=== PATIENT | male | born 1955 | race Caucasian/White ===

== ENCOUNTER 2022-05-15 07:17 | Day surgery (SDC) | payer OTHER, SELFPAY ==
--- NOTE | 2022-05-14 13:11 | P.CONAN_ITS ---
Documented by User: Uyen Stanley NP 05/14/22 13:12 HPI - Anesthesia Eval Consult details Narrative: 67yo M for Upper Endoscopy and Colonoscopy COUNTS INCLUDE 234 BEDS AT THE [facility] Past Medical History Medical History (Updated 05/14/22 @ 12:32 by Sarah Sandhu, BEN) Aphthous stomatitis Arthritis BPH (benign prostatic hyperplasia) GERD (gastroesophageal reflux disease) Hearing loss HTN (hypertension) Surgical History Surgical History (Updated 05/14/22 @ 12:32 by Sarah Sandhu RN) H/O colonoscopy H/O esophagogastroduodenoscopy H/O vasectomy History of hernia surgery Social History Social History Patient Tobacco Use Status: Former Tobacco user Are you DNR?: No Advance Directives: No Advance Directives Information Provided: Yes Nutrition Risks: No Nutritional Risk Meds Allergies Allergy/AdvReac Type Severity Reaction Status Date / Time No Known Allergies Allergy Verified 05/14/22 12:29 Home Medications Medication Instructions Recorded Confirmed Last Taken Type ascorbic acid (vitamin C) 500 mg 500 mg PO DAILY 05/14/22 05/14/22 05/14/22 History chewable tablet clotrimazole 1 % topical cream 1 appl topical BID 05/14/22 05/14/22 Unknown History dexamethasone 0.5 mg/5 mL oral 10 mg PO QID 05/14/22 05/14/22 05/14/22 History solution diclofenac sodium 75 mg 75 mg PO BID 05/14/22 05/14/22 05/14/22 History tablet,delayed release duloxetine 30 mg capsule,delayed 30 mg PO DAILY 05/14/22 05/14/22 05/14/22 History release sprinkle fluticasone propionate 50 1 spray intranasal DAILY 05/14/22 05/14/22 05/14/22 History mcg/actuation nasal spray,suspension tamsulosin 0.4 mg capsule 0.4 mg PO DAILY 05/14/22 05/14/22 05/14/22 History Exam Exam Date and Time: May 14, 20221310 Assessment and Plan Assessment Anesthesia Assessment: Chart Reviewed Documented by User: Denise Vincent MD 05/15/22 08:41 COUNTS INCLUDE 234 BEDS AT THE [facility] Past Medical History Medical History (Updated 05/14/22 @ 12:32 by Sarah Sandhu RN) Aphthous stomatitis Arthritis BPH (benign prostatic hyperplasia) GERD (gastroesophageal reflux disease) Hearing loss HTN (hypertension) Family History Family history of problems with anesthesia: No Surgical History Surgical History (Updated 05/14/22 @ 12:32 by Sarah Sandhu RN) H/O colonoscopy H/O esophagogastroduodenoscopy H/O vasectomy History of hernia surgery History of Problems with Anesthesia: No Social History Social History Patient Tobacco Use Status: Former Tobacco user Are you DNR?: No Advance Directives: No Advance Directives Information Provided: Yes Nutrition Risks: No Nutritional Risk Meds Allergies Allergy/AdvReac Type Severity Reaction Status Date / Time No Known Allergies Allergy Verified 05/14/22 12:29 Home Medications Medication Instructions Recorded Confirmed Last Taken Type ascorbic acid (vitamin C) 500 mg 500 mg PO DAILY 05/14/22 05/14/22 05/14/22 History chewable tablet clotrimazole 1 % topical cream 1 appl topical BID 05/14/22 05/14/22 Unknown History dexamethasone 0.5 mg/5 mL oral 10 mg PO QID 05/14/22 05/14/22 05/14/22 History solution diclofenac sodium 75 mg 75 mg PO BID 05/14/22 05/14/22 05/14/22 History tablet,delayed release duloxetine 30 mg capsule,delayed 30 mg PO DAILY 05/14/22 05/14/22 05/14/22 History release sprinkle fluticasone propionate 50 1 spray intranasal DAILY 05/14/22 05/14/22 05/14/22 History mcg/actuation nasal spray,suspension tamsulosin 0.4 mg capsule 0.4 mg PO DAILY 05/14/22 05/14/22 05/14/22 History Exam Airway Mallampati Class: II TM Dist: >3cm Neck ROM: Full Heart: rrr Lungs: cta Assessment and Plan Assessment Anesthesia Assessment: Anesthesia Plan Discussed Final Anesthetic Review Family History of Problems with Anesthesia: No History of Problems with Anesthesia: No NPO: Yes ASA Class: II Final Preanesthetic Review: No Changes in Pt Med Stat, Meds/Allgs Chart Reviewed, Consent Obtained/Reviewed and Anes Risks/Benef Reviewed Patient Risk: Low Procedure Risk: Low Anesthetic Plan Anesthetic Plan: MAC: Disposition: Standard PACU
[2022-05-15 06:21] VITALS: BMI 22.6
[2022-05-15 07:33] VITALS: BP 148/92; PULSE 71; RESP 18; TEMP 36.8; O2SAT 97
[2022-05-15] MEDS: Lactated Ringers 1,000 ML 100 ML IVCONT (07:59)
--- NOTE | 2022-05-15 08:41 | MHC.SHP ---
Pre-Procedural Eval Section A Date of Service: 05/15/22 Section B Chief Complaint: screening,hx of polyps,gastric metaplasia Details of Present Illness: see H*P no changes Relevant Family History (Specify if Yes): No Relevant Social History: None Present Medications: see Short Stay Collaborative assessment Medical History: No relevant PMH History of Previous Operations: No relevant previous surgery Allergies: Allergies Allergy/AdvReac Type Severity Reaction Status Date / Time No Known Allergies Allergy Verified 05/14/22 12:29 Review of Systems Sugical H&P ROS: Negative: Constitution, Cardiovascular, Respiratory, Neurological, Psychiatric, Hem-Onc, Allergic/Immunologic, Gastrointestinal, Genitourinary, Musculoskeletal, Integumentary, Endocrine and Eyes/Ears/Nose/Throat Exam Surgical H&P Exam: Normal: HEENT, Normal: Heart, Normal: Lungs, Normal: Extremities, Normal: Abdomen, Normal: Skin and Normal: Neurological Plan Diagnosis/Plan: Unchanged I have reviewed the history and physical and performed a pertinent physical examination on my patient. No changes have occurred unless specified. Time Spent With Patient Time: Total time managing care of this patient today ____ minutes.
[2022-05-15 09:32] VITALS: BP 106/71; PULSE 59; RESP 14; TEMP 36.1; O2SAT 98
--- NOTE | 2022-05-15 09:32 | PM.OP ---
Brief Operative Note Date of Service: 05/15/22 Pre-op diagnosis: gastric intestinal metaplasia screening Post-op diagnosis: same Surgeon: Jaime Diaz Anesthesia: MAC Was an Biofuels Production Associate used for this Procedure?: No Estimated blood loss (mL): 2 Pathology: other Condition: stable Disposition: PACU
[2022-05-15 09:47] VITALS: BP 120/77; PULSE 57; RESP 16; TEMP 36.1; O2SAT 99
--- NOTE | 2022-05-15 10:14 | OP_ITS ---
SURGEON: Jaime Diaz MD INDICATIONS: 1. Gastric intestinal metaplasia. 2. Colon cancer screening. PREOPERATIVE DIAGNOSIS: POSTOPERATIVE DIAGNOSIS: PROCEDURE PERFORMED: Upper endoscopy with biopsy, colonoscopy to the terminal ileum with biopsy and snare polypectomy. ESTIMATED BLOOD LOSS: COMPLICATIONS: ANESTHESIA: Monitored anesthesia care. ASSISTANTS: SPECIMENS: PROCEDURE DESCRIPTION: History and physical were performed. The risks and benefits of the procedure were explained to the patient and informed consent was obtained. The procedure was performed on 05/15/2022. The patient was placed in the left lateral decubitus position. The Olympus video gastroscope was introduced into the esophagus, stomach, and duodenum. Examination was performed. The scope was removed. He was repositioned for colonoscopy. A digital rectal exam was performed and was found to be normal. The Olympus pediatric video colonoscope was introduced into the rectum and advanced to the cecum without difficulty. The cecum was identified by transillumination, palpation, and identification of ileocecal valve. Examination was performed. The scope was removed. He tolerated both procedures well and was returned to recovery area in stable condition. FINDINGS: Upper endoscopy: 1. Esophagus: The esophagus showed an irregular EG junction. There was no esophagitis. Biopsies were obtained from the EG junction. 2. Stomach: The stomach showed no evidence of masses or ulcers. There were several benign-appearing small polyps less than 5 mm in the body and fundus consistent with fundic gland polyps. Gastric mapping was performed because of the patient's history of gastric intestinal metaplasia. 3. Duodenum: The bulb and 2nd portion were normal. Colonoscopy: The terminal ileum was normal. The visualized colonic mucosa was normal. The quality of prep was good. There was moderate sigmoid diverticulosis and some scattered diverticula in the right colon. Two polyps were identified and removed. Both measured less than 10 mm. The polyp at 40 cm was removed with a biopsy forceps. The polyp at the rectum was removed with a snare. Retroflexed examination showed small internal hemorrhoids. IMPRESSION: 1. Gastric intestinal metaplasia. 2. Colon polyps. RECOMMENDATION: Follow up the biopsy results. MD GRIFFIN Nolen/SULY / [id number] MTDAntwon
== END 2022-05-15 10:15 | disposition home or self-care (01) ==
PROVIDERS: PCP Physician Assistant; Visit Provider Internal Medicine Gastroenterology
PROC: (CPT 45385; principal; 2022-05-15 08:50)
DX: Z12.11 Encounter for screening for malignant neoplasm of colon (principal); Z86.010 Personal history of colon polyps; D12.5 Benign neoplasm of sigmoid colon; K62.1 Rectal polyp; K57.30 Diverticulosis of large intestine without perforation or abscess without bleeding; K64.8 Other hemorrhoids; K31.A0 Gastric intestinal metaplasia, unspecified; K31.7 Polyp of stomach and duodenum; K21.9 Gastro-esophageal reflux disease without esophagitis; K12.0 Recurrent oral aphthae; I10 Essential (primary) hypertension; N40.0 Benign prostatic hyperplasia without lower urinary tract symptoms; H91.90 Unspecified hearing loss, unspecified ear; Z79.899 Other long term (current) drug therapy; Z98.52 Vasectomy status
CPT/HCPCS: 45385; 45380; 43239; 88305; 88342; J3010

== ENCOUNTER 2024-12-25 07:09 | Day surgery (SDC) | payer OTHER, SELFPAY ==
--- OUTSIDE RECORDS SUMMARY | 2024-05-20 05:40 | XMS_ITS ---
Author Organization [facility] Address [address] [place] [phone] Care Team Providers Care Communication Coordinator Name Role Phone Fabrice Calhoun Primary Care Provider Un available Jaime Diaz Jr Unavailable REASON FOR VISIT esophagitis Encounters Encounter Location Date Provider Diagnosis [facility] [address] [place] [phone] 05/20/2024 Jaime Diaz Jr Plan Of Treatment Next Appt Details Provider Name:Jaime tejada Jr, 12/25/2024 11:00:00 AM, [address] [place] [address], [phone], Progress Notes * LIDIA DAVILADOB:1955 ( 69 yo M)Acc No.[id number]:05/20/2024 Progress Notes Patient: LIDIA CHOWDARY Provider: Ricardo Diaz MD :1955 A ge:69 Y S ex:Male Date:05/20/2024 Address:[address] [place], [place] [id number] Pcp:Gale Conroy Subjective: * Chief Complaints: * 1 . Esophagitis. * Medical History: Objective: * Vitals: Assessment: Plan: * Treatment: * * The named appointment provid er may or may not be the originator of this progress note, and it is not deemed complete until electronically signed by the appointment provider. Sign off status: Pending * Provider: Ricardo Diaz MD Date: 0 05/20/2024 Generated for Tejal ch/Laura/Rene on: 0 11/30/2024 08:50 PM EDT
--- OUTSIDE RECORDS SUMMARY | 2024-11-30 11:54 | XMS_ITS ---
Author Organization [facility] Address [address] [place] [phone] Care Team Providers Care Public Safety Teacher Name Role Phone Fabrice Calhoun Primary Care Provider Un available Jaime Diaz Jr Unavailable REASON FOR VISIT medications added Medications Medication SIG (Take, Route, Frequency, Duration) Notes Start Date End Date Status Ascorbic Acid 500 MG 1 tablet Orally Onc e a day for 30 day(s) Unknown Fluticasone Propionate 50 MCG/ACT 1 spray in each nostril Nasally Once a day for 30 day(s) Unknown Cyanocobalamin 1000 MCG 1 tablet Orally Once a day for 30 day(s) Unknown Dexamethasone 1 tab Oral for 14 days Unknown Multi Vitamin - 1 tablet Orally Once a day for 30 day(s) Unknown Diclofenac Potassium 50 MG 1 tablet with food or milk as needed Orally Twice a day Unknown Albuterol Sulfate 108 (90 Base) MCG/ACT 1 puff as needed Inhalation every 4 hrs Unknown Omeprazole 40 MG 1 capsule 1/2 to 1 h our before morning meal Orally Once a day for 90 days 06/01/2024 Unknown Vitamin D-3 25 MCG (1000 UT) 1 capsule O rally Once a day Unknown Calcium 500 MG 1 tablet with meals Orally Twice a day Unknown Nortriptyline HCl 25 MG 1 capsule at bed time Orally Once a day Unknown Metoprolol Succinate 25 MG 1 capsule Ora lly Once a day Unknown Cetirizine HCl 10 MG 1 tablet Orally Onc e a day Unknown Ensure - as directed Orally U nknown Tamsulosin HCl 0.4 MG 1 capsule Orally O nce a day Unknown Aspirin 81 81 MG 1 tablet Orally Once a day Unknown Meloxicam 15 MG 1 tablet Orally Once a day Unknown Riluzole 50 MG 1 tablet 1 hour befo re or 2 hours after a meal Orally Twice a day Active Finasteride 5 MG 1 tablet Orally Once a day Active Encounters Encounter Location Date Provider Diagnosis [facility] [address] [place] [phone] 11/30/2024 Jaime Diaz Jr Plan Of Treatment Next Appt Details Provider Name:Jaime tejada Jr, 12/25/2024 11:00:00 AM, [address] [place] [address], [phone], Progress Notes * DAVILA, LIDIADOB:1955 ( 69 yo M)Acc No.[id number]:11/30/2024 Patient: LIDIA CHOWDARY :1955 A ge:69 Y S ex:Male Address:[address] [place] [address], [place] [address] Subjective: * Chief Complaints: * M edications added * Medical History: * Surgical History: * Hospitalization/Major Diagno stic Procedure: * Medications: T akingRiluzole 50 MG Tablet 1 tablet 1 hour before or 2 hours after a meal Orally Twice a day Finasteride 5 MG Tablet 1 tablet Orally Once a day Taking Riluzole 50 MG Tablet 1 tablet 1 hour before or 2 hours after a meal Orally Twice a day Taking Finasteride 5 MG Tablet 1 tablet Orally Once a day UnknownAspirin 81 81 MG Tablet Delayed Release 1 tablet Orally Once a day Meloxicam 15 MG Tablet 1 tablet Orally Once a day Tamsulosin HCl 0.4 MG Capsule 1 capsule Orally Once a day Cetirizine HCl 10 MG Tablet 1 tablet Orally Once a day Ensure - Liquid as directed Orally Nortriptyline HCl 25 MG Capsule 1 capsule at bedtime Orally Once a day Metoprolol Succinate 25 MG Capsule ER 24 Hour Sprinkle 1 capsule Orally Once a day Vitamin D-3 25 MCG (1000 UT) Capsule 1 capsule Orally Once a day Calcium 500 MG Tablet 1 tablet with meals Orally Twice a day Albuterol Sulfate 108 (90 Base) MCG/ACT Aerosol Powder Breath Activated 1 puff as needed Inhalation every 4 hrs Omeprazole 40 MG Capsule Delayed Release 1 capsule 1/2 to 1 hour before morning meal Orally Once a day Diclofenac Potassium 50 MG Tablet 1 tablet with food or milk as needed Orally Twice a day Multi Vitamin - Tablet 1 tablet Orally Once a day Dexamethasone 1 tab Oral Fluticasone Propionate 50 MCG/ACT Suspension 1 spray in each nostril Nasally Once a day Cyanocobalamin 1000 MCG Tablet 1 tablet Orally Once a day Ascorbic Acid 500 MG Tablet Chewable 1 tablet Orally Once a day Medication List reviewed and reconciled with the patientUnknown Aspirin 81 81 MG Tablet Delayed Release 1 tablet Orally Once a day Unknown Meloxicam 15 MG Tablet 1 tablet Orally Once a day Unknown Tamsulosin HCl 0.4 MG Capsule 1 capsule Orally Once a day Unknown Cetirizine HCl 10 MG Tablet 1 tablet Orally Once a day Unknown Ensure - Liquid as directed Orally Unknown Nortriptyline HCl 25 MG Capsule 1 capsule at bedtime Orally Once a day Unknown Metoprolol Succinate 25 MG Capsule ER 24 Hour Sprinkle 1 capsule Orally Once a day Unknown Vitamin D-3 25 MCG (1000 UT) Capsule 1 capsule Orally Once a day Unknown Calcium 500 MG Tablet 1 tablet with meals Orally Twice a day Unknown Albuterol Sulfate 108 (90 Base) MCG/ACT Aerosol Powder Breath Activated 1 puff as needed Inhalation every 4 hrs Unknown Omeprazole 40 MG Capsule Delayed Release 1 capsule 1/2 to 1 hour before morning meal Orally Once a day Unknown Diclofenac Potassium 50 MG Tablet 1 tablet with food or milk as needed Orally Twice a day Unknown Multi Vitamin - Tablet 1 tablet Orally Once a day Unknown Dexamethasone 1 tab Oral Unknown Fluticasone Propionate 50 MCG/ACT Suspension 1 spray in each nostril Nasally Once a day Unknown Cyanocobalamin 1000 MCG Tablet 1 tablet Orally Once a day Unknown Ascorbic Acid 500 MG Tablet Chewable 1 tablet Orally Once a day Medication List reviewed and reconciled with the patient Objective: * Vitals: * Physical Examination: Assessment: Plan: * Treatment: * Procedure Codes: * true * Date: Generated for Tejal ch/Laura/Rene on: 0 11/30/2024 08:49 PM EDT
--- OUTSIDE RECORDS SUMMARY | 2024-11-30 20:50 | XMS_ITS | Patient Health Record ---
Author Organization [facility] Address [address] [facility] [address] [place] [address] Care Team Providers Care Satellite Dish Technician Name Role Phone Fabrice Calhoun Primary Care Provider Un available Jaime Diaz Jr Unavailable Allergies No Known Allergies Reason For Referral Referring Provider First Name Fabrice Referring Provider Last Name Vipin Referring Provider Speciality Internal M edicine Referred Organization [facility] Referred Provider Jaime Diaz Jr Referred Address [address] [place] [address],[address],[place], [place],[phone],[place] Referred Provider Specialty Gastroentero logy General Notes Krystina Badillo 2024 03:34:42 PM >spoke with the patient and notified him that he needs a new referral from Dr. Lew for his visit with Dr. Diaz on 06-01-24 Referral Priority Routine Referring Provider First Name Fabrice Referring Provider Last Name Vipin Referring Provider Speciality Internal edicine Referred Organization [facility] Referred Provider Jaime Diaz Jr Referred Address [address] [place] [address], [address],[place], [place],[phone], Referred Provider Specialty Gastroentero logy Referral Priority Routine Medications Medication SIG (Take, Route, Frequency, Duration) Notes Start Date End Date Status Nortriptyline HCl 25 MG 1 capsule at bed time Orally Once a day Unknown Ascorbic Acid 500 MG 1 tablet Orally Onc e a day for 30 day(s) Unknown Metoprolol Succinate 25 MG 1 capsule Ora lly Once a day Unknown Cetirizine HCl 10 MG 1 tablet Orally Onc e a day Unknown Fluticasone Propionate 50 MCG/ACT 1 spray in each nostril Nasally Once a day for 30 day(s) Unknown Ensure - as directed Orally U nknown Cyanocobalamin 1000 MCG 1 tablet Orally Once a day for 30 day(s) Unknown Dexamethasone 1 tab Oral for 14 days Unknown Tamsulosin HCl 0.4 MG 1 capsule Orally O nce a day Unknown Aspirin 81 81 MG 1 tablet Orally Once a day Unknown Diclofenac Potassium 50 MG 1 tablet with food or milk as needed Orally Twice a day Unknown Meloxicam 15 MG 1 tablet Orally Once a day Unknown Multi Vitamin - 1 tablet Orally Once a day for 30 day(s) Unknown Riluzole 50 MG 1 tablet 1 hour befo re or 2 hours after a meal Orally Twice a day Active Albuterol Sulfate 108 (90 Base) MCG/ACT 1 puff as needed Inhalation every 4 hrs Unknown Finasteride 5 MG 1 tablet Orally Once a day Active Omeprazole 40 MG 1 capsule 1/2 to 1 h our before morning meal Orally Once a day for 90 days 06/01/2024 Unknown Vitamin D-3 25 MCG (1000 UT) 1 capsule O rally Once a day Unknown Calcium 500 MG 1 tablet with meals Orally Twice a day Unknown Immunizations Vaccine Route Administration Date Status Comme nts Influenza Unknown 2022 Administered Influenza Unknown 05/08/2023 Administered Influenza Unknown 01/07/2024 Administered Social History Tobacco Use: Social History Observation Description Date Details (start date - stop date) Never Smoker NA - NA Tobacco Use/Smoking Question Answer Notes Patient is a nonsmoker Alcohol Screen Question Answer Notes Did you have a drink containing alcohol in the p ast year? 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 confirmed Problem Dysphagia (41383269) Dysphagia (R13.10) Active confirmed Problem 000654282 Gastroesophageal reflux disease, unspecified whether esophagitis present (K21.9) Active confirmed Problem 93774195 Gastric intestin al metaplasia (K31.A0) Active confirmed Vital Signs Temperature 96.9 degrees Fahrenheit 11/30/2024 Blood pressure diastolic 01 mm Hg 11/30/2024 Height 66 in 11/30/2024 Blood pressure systolic 001 mm Hg 11/30/2024 Weight 120 lbs 11/30/2024 BMI 19.37 kg/m2 11/30/2024 Encounters Encounter Location Date Provider Diagnosis [facility] [address] [place] [phone] 11/30/2024 Jaime Diaz Jr Diallo's esophagus without dysplasia K22.70 and Dysphagia R13.10 [facility] [address] [place] [phone] 06/01/2024 Jaime Diaz Jr Gastroesophageal reflux disease, unspecified whether esophagitis present K21.9 [facility] [address] [place] [phone] 01/31/2024 Jaime Diaz Jr [facility] [address] [place] [phone] 11/30/2024 Jaime Diaz Jr Assessments Encounter Date Diagnosis (ICD Code) Assessment Notes Treatment Notes Treatment Clinical Notes Section Notes 11/30/2024 Diallo's esophagus without dysplasia (ICD-10 - K22.70) 11/30/2024 Dysphagia (ICD-10 - R13.10) 06/01/2024 Gastroesophageal reflux disease, unspecified whether esophagitis present (ICD-10 - K21.9) We discussed hi s symptoms today. We discussed gastroesophageal reflux disease. We discussed diet, lifestyle modifications, and weight management regarding the treatment of reflux. We recommend that he continue these measures. His omeprazole will be increased to 40 mg daily. Follow-up will be in 1 year, but if he has continued symptoms we would recommend repeat endoscopy sooner. He will call us to let us know how he is doing in about a month Plan Of Treatment Future Test Test Name Order Date COLONOSCOPY 04/04/2022 UPPER GI ENDOSCOPY 04/05/2022 UPPER GI ENDOSCOPY 11/30/2024 Next Appt Details Provider Name:Jaime tejada Jr, 12/25/2024 11:00:00 AM, [address] [place] [address] , [place], [place], [phone], Insurance Providers Payer Name Payer Address Payer Phone Subscriber Number Group Number Insured Name Patient Relationship to Insured Coverage Start Date Coverage End Date [facility] [employer] [address] [place] [id number] LIDIA DAVILA Self - patient is the insured Medical (General) History Medical History History ICD Code Gastroesophageal reflux dise ase, EGD , focal intestinal metaplasia on antral biopsies, no Diallo's esophagus, EGD 05/15/22, Diallo's esophagus, and intestinal metaplasia greater curvature Diallo's esophagus, gastric intestinal metaplasia, negative mapping biopsies, no dysplasia, EGD 05/10, three-year followup Colon polyps, colonoscopy 05/10, tubular adenoma, seven-year followup Hypertension Hearing loss Sciatica/disease Arthritis BPH Aphthous stomatitis back surgery decompression spine ALS Surgical History Surgery Date(Month/Year) gall bladder removed 12/10 Back surgery vasectomy 1980 hernia 2019
--- OUTSIDE RECORDS SUMMARY | 2024-11-30 20:50 | XMS_ITS | Clinical Summary ---
Author Organization [facility] Address [address] [place] [address] Phone Care Team Providers Care Heating Operators Engineer Name Role Phone Fabrice Obregon Primary Care Provid er Medications DOCOSAHEXANOIC ACID/EPA (FISH OIL ORAL) Active Medication-Free Text Calcium + D Active Medication-Free Text Gabapentin 100 MG Tablet, Si tablet Orally Three times a day Active MULTIVITAMIN WITH MINERALS ORAL Active meloxicam (MOBIC) 15 MG tablet Take 15 mg by mouth daily. Active aspirin (ASPIR-81) 81 MG EC tablet Take 81 mg by mouth daily. Active ascorbic acid, vitamin C, (VITAMIN C) 500 MG tablet 2 tablet Orally Once a day Active alfuzosin (UROXATRAL) 10 mg 24 hr tablet Orally Acti ve fluticasone propionate (FLONASE) 50 mcg/actuation nasal spray 1 spray in each nostril Nasally Once a day Active Social History Tobacco Use Types Packs/Day Years Used Date Smoking Tobacco: Never Assessed Education Answer Date Recorded Are you interested in more education? Not on donald e 07/13/2022 Are you concerned about learning? Not on file 07/13/2022 No 07/13/2022 No 07/13/2022 Digital Access Answer Date Recorded No 08/13/2022 No 08/13/2022 No 08/13/2022 Reliable internet access at home? Not on file 08/13/2022 Device with a working camera? Not on file Sex and Gender Information Value Date Recorded Sex Assigned at Not on file Legal Sex Male 10:36 PM EDT Gender Identity Not on file Sexual Orientation Not on file Last Filed Vital Signs Vital Sign Reading Time Taken Comments Blood Pressure - - Pulse - - Temperature - - Respiratory Rate - - Oxygen Saturation - - Inhaled Oxygen Concentration - - Weight 76.2 kg (168 lb) 08/20/2016 1:44 AM EDT Height 167.6 cm (5' 6 ) 08/20/2016 1:44 AM EDT Body Mass Index 27.12 08/20/2016 1:44 AM EDT Plan of Treatment Not on file Medical Devices Not on file Insurance Care Teams Heating Operators Engineer Relationship Specialty Start Date End Date Fabrice Obregon PA PCP - General 03/21/17 Additional Source Comments The information contained in this document represents components of the legal health record. It is not the complete legal health record.[facility]
--- OUTSIDE RECORDS SUMMARY | 2024-11-30 20:50 | XMS_ITS | Clinical Summary ---
Author Organization [address] Address [address] [place] [id number] Phone Care Team Providers Care Sas Clinical Programmer Name Role Phone Fabrice Obregon Primary Care Provider [phone] Encounters Date Type Department Care Team Description 10/27/2024 Lab Requisition [facility] - Main Lab [address] [facility] [address] Joe Caceres MD Urinary tract infection, site not specified; Dysuria from Last 3 Months Social History Tobacco Use Types Packs/Day Years Used Date Smoking Tobacco: Never Assessed Sex and Gender Information Value Date Recorded Sex Assigned at Not on file Legal Sex Male 9:27 PM EST Gender Identity Not on file Sexual Orientation Not on file Plan of Treatment Health Maintenance Due Date Last Done Comments DTaP,Tdap,and Td Vaccines (1 - Tdap) 1973 Pneumococcal Vaccine: 50+ Ye ars (1 of 1 - PCV) 02/29/2004 Zoster Vaccines (1 of 2) 02/29/2004 Depression Screening 03/18/2024 Abdominal Aortic Aneurysm (A AA) Screen 10/28/2024 Cholesterol Screening (Lipid Panel) 10/28/2024 Colorectal Cancer Screening: Colonoscopy 10/28/2024 Falls Risk Assessment 10/28/2024 Hepatitis C Screening 10/28/2024 Medicare Annual Wellness Visit 10/28/2024 Social Influencers of Health Screening 10/28/2024 COVID-19 Vaccine ( - 2023-2 5 season) 2024 Influenza Vaccine (#1) 2024 RSV Immunization Adult Patie nts (1 - 1-dose 75+ series) 2029 HIB Vaccines Aged Out No longer eligi ble based on patient's age to complete this topic HPV Vaccines Aged Out No longer eligi ble based on patient's age to complete this topic Hepatitis A Vaccines Aged Out No long er eligible based on patient's age to complete this topic Hepatitis B Vaccines Aged Out No long er eligible based on patient's age to complete this topic IPV Vaccines Aged Out No longer eligi ble based on patient's age to complete this topic MMR Vaccines Aged Out No longer eligi ble based on patient's age to complete this topic Meningococcal ACWY Vaccine Aged Out N o longer eligible based on patient's age to complete this topic Meningococcal B Vaccine Aged Out No l onger eligible based on patient's age to complete this topic RSV Immunization Patients Un emily 20 months Aged Out No longer eligible b ased on patient's age to complete this topic Varicella Vaccines Aged Out No longer eligible based on patient's age to complete this topic Procedures Procedure Name Priority Date/Time Associated Diagnosis Comments CULTURE URINE Routine 10/27/2024 12:00 AM EDT Urinary tract infection, site not specified Dysuria from Last 3 Months Results * Culture urine (10/27/2024 12:00 AM EDT) Culture, Urine <10,000 CFU/mL gram positive cocci, insignificant count, no further workup 10/28/2024 11:07 AM EDT [facility] Urine Urine specimen obtained by clean catch procedure / Unknown Non-blood Collection / Unknown 10/27/2024 10/27/2024 12:23 PM EDT us Joe Caceres MD LAB MICROBIOLOGY - GENERAL ORD ERABLES Final Result [facility] [address] [place] [address], from Last 3 Months Insurance MEDICARE [facility] Care Teams Sas Clinical Programmer Relationship Specialty Start Date End Date Fabrice Obregon PA [address] [place] [address] PCP - General 02/14/17
--- OUTSIDE RECORDS SUMMARY | 2024-11-30 20:50 | XMS_ITS | Encounter Summary ---
Author Organization [facility] Address [address] [place] [address] Care Team Providers Care Instructor Extension Work Name Role Phone Fabrice Obregon Primary Care Provider [phone] [phone] Encounter Details Date Type Department Care Team (Late st Contact Info) Description 10/27/2024 Lab Requisition [facility] - Main Lab [address] [facility] [place] [address] Joe Caceres MD [address] [facility] [address] [place] [address] Urinary tract infection, site not specified; Dysuria Social History Tobacco Use Types Packs/Day Years Used Date Smoking Tobacco: Never Assessed Sex and Gender Information Value Date Recorded Sex Assigned at Not on file Legal Sex Male 9:27 PM EST Gender Identity Not on file Sexual Orientation Not on file documented as of this encounter Plan of Treatment Not on file documented as of this encounter Procedures Procedure Name Priority Date/Time Associated Diagnosis Comments CULTURE URINE Routine 10/27/2024 12:00 AM EDT Urinary tract infection, site not specified Dysuria documented in this encounter Results * Culture urine (10/27/2024 12:00 AM EDT) Culture, Urine <10,000 CFU/mL gram positive cocci, insignificant count, no further workup 10/28/2024 11:07 AM EDT [facility] Urine Urine specimen obtained by clean catch procedure / Unknown Non-blood Collection / Unknown 10/27/2024 10/27/2024 12:23 PM EDT us Joe Caceres MD LAB MICROBIOLOGY - GENERAL ORD ERABLES Final Result [facility] [address] [place] [address], documented in this encounter Visit Diagnoses Diagnosis Urinary tract infection, site not specified Dysuria documented in this encounter Care Teams Instructor Extension Work Relationship Specialty Start Date End Date Fabrice Obregon PA [address] [place] [address] PCP - General 02/14/17 documented as of this encounter
[2024-12-23 12:20] VITALS: BMI 21.3
--- NOTE | 2024-12-24 10:28 | HO.ANESPROP2 ---
Documented by User: Uyen Stanley NP 12/24/24 10:34 HPI - Anesthesia Eval Consult details Narrative: 69yo M for Upper Endoscopy Newly diagnosed ALS - riluzole BID - ambulates with walker/cane s/p lap jenn at [facility] 11/2024 [facility] Past Medical History Medical History History of tachycardia Diallo's esophagus Foot drop, bilateral Wears hearing aid in both ears ALS (amyotrophic lateral sclerosis) Aphthous stomatitis BPH (benign prostatic hyperplasia) Arthritis Hearing loss HTN (hypertension) GERD (gastroesophageal reflux disease) Family History Family history of problems with anesthesia: No Surgical History Surgical History Hx laparoscopic cholecystectomy (11/27/24) H/O vasectomy History of hernia surgery H/O colonoscopy (2022) H/O esophagogastroduodenoscopy (2022) History of Problems with Anesthesia: No Social History Social History Household Members: Spouse Housing: House Are you a primary after school caregiver to a significant other at home: No Do you presently have visiting nurse or other home services: No Comment: leg braces Patient Tobacco Use Status: Former Tobacco user Tobacco use type: Cigarette Smoked in Last 30 Days: No Use of substances other than those prescribed or required for medical reasons: No Have you been hit, kicked, punched, or otherwise hurt by someone within the past year? If so, by whom?: No Are you DNR?: No Advance Directives: No (will bring dos) Advance Directives Information Provided: Yes Advance Directives on File: No Poor oral hygiene: No Meds Allergies Allergy/AdvReac Type Severity Reaction Status Date / Time No Known Allergies Allergy Verified 05/14/22 12:29 Home Medications ?Medication ?Instructions ?Recorded ?Confirmed ?Last Taken ?Type ascorbic acid (vitamin C) 500 mg 500 mg PO DAILY 05/14/22 12/23/24 05/14/22 History chewable tablet diclofenac sodium 75 mg 75 mg PO BID 05/14/22 12/23/24 12/18/24 History tablet,delayed release tamsulosin 0.4 mg capsule 0.4 mg PO BID 05/14/22 12/23/24 12/25/24 History cetirizine 10 mg tablet 10 mg PO DAILY 12/23/24 12/23/24 Unknown History cholecalciferol (vitamin D3) 10 10 mcg PO DAILY 12/23/24 12/23/24 Unknown History mcg (400 unit) capsule (Vitamin D3) cyanocobalamin (vitamin B-12) 500 500 mcg PO DAILY 12/23/24 12/23/24 Unknown History mcg tablet (Vitamin B-12) edaravone 105 mg/5 mL oral 105 mg PO .[id number] 12/23/24 12/23/24 12/25/24 History suspension (Radicava ORS) finasteride 5 mg tablet 5 mg PO BEDTIME 12/23/24 12/23/24 Unknown History ipratropium bromide 21 mcg (0.03 21 mcg intranasal DAILY 12/23/24 12/23/24 Unknown History %) nasal spray metoprolol succinate 25 mg capsule 25 mg PO DAILY 12/23/24 12/23/24 Unknown History sprinkle, ext. release 24 hr multivitamin 1 tab PO DAILY 12/23/24 12/23/24 Unknown History nortriptyline 25 mg capsule 25 mg PO BEDTIME 12/23/24 12/23/24 Unknown History omeprazole 40 mg capsule,delayed 40 mg PO DAILY 12/23/24 12/23/24 Unknown History release riluzole 50 mg tablet 50 mg PO BID 12/23/24 12/23/24 Unknown History Exam Height,Weight and Vital Signs: Height 5 ft 3 in Weight 54.431 kg Assessment and Plan Assessment Anesthesia Assessment: Chart Reviewed Final Anesthetic Review Family History of Problems with Anesthesia: No History of Problems with Anesthesia: No Documented by User: Tab Blount MD 12/25/24 08:37 [facility] Past Medical History Medical History History of tachycardia Diallo's esophagus Foot drop, bilateral Wears hearing aid in both ears ALS (amyotrophic lateral sclerosis) Aphthous stomatitis BPH (benign prostatic hyperplasia) Arthritis Hearing loss HTN (hypertension) GERD (gastroesophageal reflux disease) Functional capacity: independent ambulation Narrative: msk limitations with als Surgical History Surgical History Hx laparoscopic cholecystectomy (11/27/24) H/O vasectomy History of hernia surgery H/O colonoscopy (2022) H/O esophagogastroduodenoscopy (2022) Social History Social History Household Members: Spouse Housing: House Are you a primary after school caregiver to a significant other at home: No Do you presently have visiting nurse or other home services: No Comment: leg braces Patient Tobacco Use Status: Former Tobacco user Tobacco use type: Cigarette Smoked in Last 30 Days: No Use of substances other than those prescribed or required for medical reasons: No Have you been hit, kicked, punched, or otherwise hurt by someone within the past year? If so, by whom?: No Are you DNR?: No Advance Directives: No (will bring dos) Advance Directives Information Provided: Yes Advance Directives on File: No Poor oral hygiene: No Meds Allergies Allergy/AdvReac Type Severity Reaction Status Date / Time No Known Allergies Allergy Verified 05/14/22 12:29 Home Medications ?Medication ?Instructions ?Recorded ?Confirmed ?Last Taken ?Type ascorbic acid (vitamin C) 500 mg 500 mg PO DAILY 05/14/22 12/23/24 05/14/22 History chewable tablet diclofenac sodium 75 mg 75 mg PO BID 05/14/22 12/23/24 12/18/24 History tablet,delayed release tamsulosin 0.4 mg capsule 0.4 mg PO BID 05/14/22 12/23/24 12/25/24 History cetirizine 10 mg tablet 10 mg PO DAILY 12/23/24 12/23/24 Unknown History cholecalciferol (vitamin D3) 10 10 mcg PO DAILY 12/23/24 12/23/24 Unknown History mcg (400 unit) capsule (Vitamin D3) cyanocobalamin (vitamin B-12) 500 500 mcg PO DAILY 12/23/24 12/23/24 Unknown History mcg tablet (Vitamin B-12) edaravone 105 mg/5 mL oral 105 mg PO .[id number] 12/23/24 12/23/24 12/25/24 History suspension (Radicava ORS) finasteride 5 mg tablet 5 mg PO BEDTIME 12/23/24 12/23/24 Unknown History ipratropium bromide 21 mcg (0.03 21 mcg intranasal DAILY 12/23/24 12/23/24 Unknown History %) nasal spray metoprolol succinate 25 mg capsule 25 mg PO DAILY 12/23/24 12/23/24 Unknown History sprinkle, ext. release 24 hr multivitamin 1 tab PO DAILY 12/23/24 12/23/24 Unknown History nortriptyline 25 mg capsule 25 mg PO BEDTIME 12/23/24 12/23/24 Unknown History omeprazole 40 mg capsule,delayed 40 mg PO DAILY 12/23/24 12/23/24 Unknown History release riluzole 50 mg tablet 50 mg PO BID 12/23/24 12/23/24 Unknown History Exam Exam Date and Time: 12/25/2024 Airway Mallampati Class: II TM Dist: >3cm Neck ROM: Full Heart: rrr Lungs: ctab vesicular Assessment and Plan Assessment Anesthesia Assessment: Anesthesia Plan Discussed Final Anesthetic Review NPO: Yes ASA Class: III Final Preanesthetic Review: No Changes in Pt Med Stat, Meds/Allgs Chart Reviewed, Consent Obtained/Reviewed and Anes Risks/Benef Reviewed Patient Risk: Low Procedure Risk: Low Anesthetic Plan Anesthetic Plan: MAC: Disposition: Standard PACU
[2024-12-25 07:47] VITALS: BP 104/81; PULSE 94; RESP 18; TEMP 36.4; O2SAT 96; BMI 21.6
[2024-12-25] MEDS: Lactated Ringers 1,000 ML 100 ML IVCONT (08:09)
--- NOTE | 2024-12-25 09:00 | MHC.SHP ---
Pre-Procedural Eval Section A - 24 Hr Update-Section A only Date of Service: 12/25/24 The patient is an INPATIENT: No Changes since office visit: Yes New Medical Problems The patient has been examined within 24 hours of the surgical procedure. The History & Physical has been completed within 30 days and I have reviewed it.: Yes Section B - Complete if H&P > 30 days Chief Complaint: Diallo's esophagus without dysplasia Allergies: Allergies Allergy/AdvReac Type Severity Reaction Status Date / Time No Known Allergies Allergy Verified 05/14/22 12:29 Plan Diagnosis/Plan: Unchanged I have reviewed the history and physical and performed a pertinent physical examination on my patient. No changes have occurred unless specified. Time Spent With Patient Time: Total time managing care of this patient today ____ minutes.
--- NOTE | 2024-12-25 09:02 | PM.EVENT ---
Event Note Date of Service: 12/25/24 Event Note: GI pt reports fall on wayin to hospital. feels ok now and wishes to proceed. Time Spent With Patient Time: Total time managing care of this patient today ____ minutes.
[2024-12-25 09:28] VITALS: BP 105/70; PULSE 81; RESP 11; TEMP 36.2; O2SAT 99
[2024-12-25 09:46] VITALS: BP 103/76; PULSE 85; RESP 14; TEMP 36.2; O2SAT 95
--- NOTE | 2024-12-25 10:25 | OP_ITS ---
DATE OF SERVICE: 12/25/2024 SURGEON: Jaime Diaz MD INDICATIONS: Dysphagia and history of Diallo esophagus. PREOPERATIVE DIAGNOSIS: POSTOPERATIVE DIAGNOSIS: PROCEDURE PERFORMED: Upper endoscopy with biopsy. ESTIMATED BLOOD LOSS: COMPLICATIONS: ANESTHESIA: Monitored anesthesia care. ASSISTANTS: SPECIMENS: DESCRIPTION OF PROCEDURE: A history and physical was performed. The risks and benefits of the procedure were explained to the patient, and informed consent was obtained. The patient was placed in the left lateral decubitus position. The Olympus video gastroscope was introduced into the esophagus, stomach, and duodenum. Examination was performed. The scope was removed. He tolerated the procedure well and was returned to the recovery area in stable condition. FINDINGS: Esophagus: The esophagus was normal. There was no stricture. The scope easily passed into the stomach. The EG junction was irregular, and this was biopsied. Stomach: The stomach showed several benign-appearing gastric polyps. Antral biopsies were obtained to evaluate for H pylori. No mass, lesions, or ulcers were identified. Duodenum: The bulb and 2nd portion were normal. Biopsies were obtained from the 2nd portion. IMPRESSION: Diallo esophagus, dysphagia. RECOMMENDATION: Follow up the biopsy results. MD GRIFFIN Nolen/SULY / [id number]
== END 2024-12-25 10:26 | disposition home or self-care (01) ==
PROVIDERS: PCP Physician Assistant; Visit Provider Internal Medicine Gastroenterology
PROC: 0DJ08ZZ Inspection of Upper Intestinal Tract, Via Natural or Artificial Opening Endoscopic (ICD-10-PCS; CPT 43235; principal; 2024-12-25 09:10)
DX: K22.70 Barrett's esophagus without dysplasia (principal); R13.10 Dysphagia, unspecified
CPT/HCPCS: 43239; 88305; 88313; 88342; J2003; J2704